=== PATIENT | female | born 1995 | race American Indian/Alaskan Native ===

== ENCOUNTER 2018-02-27 03:03 | Outpatient (CLI) | payer MEDICAID ==
[2018-02-27] MEDS: BRETHINE SUB-Q SCH ×3 (03:45→05:00)
[2018-02-27] MEDS ORDERED: LACTATED RINGERS 500 ML IV ONE (03:48)
[2018-02-27 05:35] LABS: Bacteria,Urine 2+ /HPF (Negative); Bilirubin,Urine NEG (Negative); Blood,Urine NEG (Negative); Color,Urine Straw (Yellow); Protein,Urine <15 mg/dL mg/dL (Negative); Urobilinogen,Urine < 2.0 mg/dL (<2.0)
[2018-02-27 05:58] VITALS: BP 104/66
== END 2018-02-27 07:20 | disposition home or self-care (01) ==
LOC: TRG 03:03
PROVIDERS: ATTEND Obstetrics & Gynecology
DX: O47.02 False labor before 37 completed weeks of gestation, second trimester (principal); O99.612 Diseases of the digestive system complicating pregnancy, second trimester; K21.9 Gastro-esophageal reflux disease without esophagitis; Z3A.27 27 weeks gestation of pregnancy
CPT/HCPCS: 59025; 81001; 96360; 96372; J3105; J7120

== ENCOUNTER 2021-01-20 19:03 | Observation (INO) | payer MEDICAID, OTHER ==
[2021-01-20] MEDS ORDERED: LACTATED RINGERS 1,000 ML IV ONE (21:07)
--- NOTE | 2021-01-20 22:04 | History and Physical Report ---
History of Present Illness Date of examination: 01/20/21 Date of admission: 01/20/2021 Chief complaint: contractions since 530pm tonight History of present illness: EDC Confirmation: 02/02/2021 Past History : 5 Term Births: 1 Premature Births: 1 Living Children: 1 Para: 2 Mult. Births: 0 Prev : 2 Aborta: 2 Elect. Ab: 1 Spont. Ab: 1 Ectopics: 0 # 1 Delivery date: 11/2014 Delivery type: EAB Comments: D & C # 2 Delivery date: 06/2015 Weeks Gestation: 6 Delivery type: SAB # 3 Delivery date: 2016 Weeks Gestation: 28 labor: yes Delivery [facility] Inf[facility] Sex: Female weight: 3lbs Comments: Tetrasomy 9P; lived x 1 month until extubated # 4 Delivery date: 05/23/2018 Weeks Gestation: 39 labor: no Delivery type: Anesthesia type: Spinal Delivery location: [facility] weight: 8 Risk Factors: Smoked Tobacco Use: Never smoker Smokeless Tobacco Use: Never Passive smoke exposure: no Drug use: no HIV high-risk behavior: no Exercise: no Seatbelt use: 100 % Past Medical History: Reviewed history from 06/17/2015 and no changes required: GERD Constipation Anxiety Past Surgical History: Reviewed history from 05/23/2018 and no changes required: tonsillectomy 2015 [place] teeth 2013 EAB 11/2014 with D & C c/s 2017 (05/23/2018) Past Medical History Abnormal PAP: No Uterine Anomaly: negative Social Hx: 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 Infection History HIV Risk Eval: no Hepatitis B Risk Eval: low risk Personal hx. of genital herpes: yes Infection History Comments: HSv titer +, no hx outbreaks Genetic History Congenital Heart Defect: Mom: no Dad: no Taylor Disease: Mom: no Dad: no Thalassemia Mom: no Dad: no Neural Tube Defect Mom: no Dad: no Down's Syndrome Mom: no Dad: no Doc-Sachs Mom: no Dad: no Sickle Cell Disease/Trait Mom: no Dad: no Hemophilia Mom: no Dad: no Muscular Dystrophy Mom: no Dad: no Cystic Fibrosis Mom: no Dad: no [place] Chorea Mom: no Dad: no Mental Retardation Mom: no Dad: no Fragile X Mom: no Dad: no Other Genetic/Chromosomal Disorder Mom: no Dad: no Child w/other defect Mom: yes Dad: no Comments: 1st child born with genetic d Enviromental Exposures Xray Exposure: no Medication, drug, or alcohol use since LMP: no Chemical/Other Exposure: no Exposure to Cat Liter: no Hx of Parvovirus (Fifth Disease): no Occupational Exposure to Children: none Active Medications (reviewed today): PLUS 27-1 MG ORAL TABLET ( VIT-FE FUMARATE-FA) 1 po MICROGESTIN FE 1.5/30 1.5-30 MG-MCG ORAL TABLET (NORETHIN NU-ETH ESTRAD-FE) 1 PO QD Current Allergies (reviewed today): No known allergies Past History Past Medical History: other (see HPI) Past Surgical History: other (see HPI) 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 (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) Family/Genetic History: other (see HPI) Social history: other (see HPI) - Obstetrical History Expected Date of Delivery: 02/02/21 Actual Gestation: 38 Week(s) 1 Day(s) : 5 Para: 2 Hx # Term Pregnancies: 1 Number of Pregnancies: 1 Spontaneous Abortions: 1 Induced : 1 Number of Living Children: 1 Medications and Allergies Allergies Allergy/AdvReac Type Severity Reaction Status Date / Time No Known Allergies Allergy Verified 01/04/15 01:45 Home Medications Medication Instructions Recorded Confirmed Last Taken Type Promethazine [Phenergan TAB] 25 mg PO Q6HR PRN #12 tab 01/04/15 02/27/18 Unknown Rx raNITIdine HCl [Zantac] 150 mg PO Q12H #60 tablet 01/04/15 02/27/18 Unknown Rx Ferrous Sulfate [Feosol 325 MG tab] 325 mg PO BID #60 tablet 02/21/17 02/27/18 Unknown Rx Vit Calc,Iron,Folic 1 each PO DAILY #30 tablet 02/21/17 02/27/18 Unknown Rx [ Vitamins] Ferrous Sulfate [Feosol 325 MG tab] 325 mg PO BID #60 tablet 05/23/18 Unknown Rx Ibuprofen [Motrin 800 MG tab] 800 mg PO Q6H PRN #30 tablet 05/23/18 Unknown Rx oxyCODONE /ACETAMINOPHEN [Percocet 1 - 2 tab PO Q4H PRN #30 tablet 05/23/18 Unknown Rx 5/325 mg] Active Meds: Active Medications Lactated Ringer's (Lactated Ringers) 1,000 mls @ 999 mls/hr IV BOLUS ONE Stop: 01/20/21 22:07 Last Admin: 01/20/21 20:18 Dose: 999 mls/hr Documented by: Review of Systems All systems: negative Genitourinary: contractions - Vital Signs Vital signs: Vital Signs Pulse BP Pulse Ox 92 H 99/70 100 01/20/21 19:36 01/20/21 19:36 01/20/21 19:36 Temp Pulse Resp BP Pulse Ox 98.4 F 96 H 18 99/70 98 01/20/21 19:37 01/20/21 20:56 01/20/21 19:37 01/20/21 19:37 01/20/21 20:56 - Physical Exam Breasts: Positive: deferred Cardiovascular: Regular rate Lungs: Positive: Normal air movement Abdomen: Positive: normal appearance, soft Genitourinary (Female): Positive: normal external genitalia, normal perenium Vulva: both: normal Vagina: Positive: normal moisture Uterus: Positive: normal size, normal contour Anus/Rectum: Positive: normal perianal skin Extremities: Positive: normal - Obstetrical FHR: auscultation normal, category 1 Uterine Contraction Monitor Mode: External Cervical Dilatation: 0 Cervical Effacement Percentage: 0 station: -3 Uterine Contraction Frequency (min): 2-7 Uterine Contraction Pattern: Regular Uterine Tone Measurement Phase: Resting Results All other labs normal. Tests: (1) Ct, Ng, Trich vag by ROBBIE ([id number]) Order Note: Clinical Information: SRC:UR SRC:VR Chlamydia by ROBBIE Negative Negative *1 Gonococcus by ROBBIE Negative Negative *2 Trich vag by ROBBIE Negative Negative *3 Tests: (2) Strep Gp B ROBBIE ([id number]) ! Strep Gp B ROBBIE Negative Negative *4 Lab Monitoring, Entry, and Tracking Initial Lab: TEST VALUE DATE REVIEWED Blood Type: O+ 06/14/2020 D (Rh) Type: + 06/14/2020 Antibody screen: negative 06/14/2020 Hgb: 11.6 06/14/2020 Hct: 32.8 06/14/2020 Rubella: immune 06/14/2020 VDRL: negative 06/14/2020 Urine Culture: negative 06/14/2020 HBsAg: negative 06/14/2020 HIV: negative 06/14/2020 Optional Lab: TEST VALUE DATE REVIEWED Hgb electrophoresis: normal 06/14/2020 Chlamydia: negative 06/14/2020 GC culture: negative 06/14/2020 Chemistry Labs Test Date: Value Units H/L Reference Glucose-random: 111 mg/dL H (70-110) Comments: A1c 5.5% Optional Labs Varicella Ab: negative (06/14/2020) Other Labs: pt reports + HSV 2, titer +, no hx outbreak Assessment and Plan Pt presents with c/o regular painful contractions since 5:30pm tonight and H/O x2. Rpt SVE unchanged and still closed per manager scheduling, however regular contractions still noted via toco, despite IV fluid administration. Dr. Saab consulted and orders received for observation, labs, and NPO overnight. Pt reports eating and drinking last @6pm. POC d/w pt and SO. Orders placed in EMR - Patient Problems (1) Maternal care due to uterine scar from other previous surgery Current Visit: No Status: Acute Plan to address problem: Monitor for changes in status
[2021-01-20] MEDS ORDERED: ACETAMINOPHEN 325 MG TAB PO PRN (22:14)
[2021-01-20] MEDS ORDERED: LACTATED RINGERS 1,000 ML IV SCH (22:15)
[2021-01-21 01:38] LABS: Basophils % (Auto) 0.6 % (0.0-1.8); Eosinophils % (Auto) 0.8 % (0.0-4.3); Hematocrit 28.8 % (30.3-42.9); Lymphocytes # (Auto) 1.6 K/mm3 (1.2-5.4); Lymphocytes % (Auto) 30.5 % (13.4-35.0); Mean Corpuscular HGB Conc 35 % (30-34); Mean Corpuscular Volume 96 fl (79-97); Monocytes # (Auto) 0.3 K/mm3 (0.0-0.8); Monocytes % (Auto) 5.9 % (0.0-7.3); Platelet Count 241 K/mm3 (140-440); Red Cell Distribution Width 14.4 % (13.2-15.2)
--- NOTE | 2021-01-21 01:52 | Event Note ---
Date: 01/21/21 CNM to bedside for assessment; pt sleeping and reports she's without complaints at this time. Cat 1 FHT's with irregular contractions noted via toco. SVE deferred at this time. Lights dimmed for pt comfort and rest encouraged.
[2021-01-21 05:32] VITALS: BP 95/53
--- NOTE | 2021-01-21 07:00 | Discharge Summary ---
Providers - Providers Date of Admission: 01/20/21 22:15 Date of discharge: 01/21/21 (pt denies any further ctx or pain; desires d/c) Attending physician: NELSON FORBES Primary care physician: NELSON FORBES Hospitalization Reason for admission: ctx without labor Condition: Good Disposition: DC-01 TO HOME OR SELFCARE Final Discharge Diagnosis (Prints w/discharge instructions): contractions w/o labor resolved Time spent for discharge: 20min - Discharge Diagnoses (1) Irregular uterine contractions Status: Acute Comment: Pt has her Preop @ 0900 in the [facility] office this AM Core Measure Documentation - Palliative Care Palliative Care/ Comfort Measures: Not Applicable - Core Measures Any of the following diagnoses?: none - VTE Discharge Requirements Deep Vein Thrombosis/Pulmonary Embolism Present on Admission: No Has pt received <5 days of overlap therapy or INR<2.0: No Anticoagulant overlap therapy prescribed at discharge: No Contraindication No Overlap Therapy order at DC: Not Indicated - Acute [place] Discharge Requirements Aspirin at discharge: No Reason for no aspirin on DC: Medical contraindication NU/ARB for LVSD if EF <40%: Not Applicable Reason for no NU/ARB: Medical contraindication Beta esther at discharge: No Reason for no beta esther on DC: Medical contraindication Statin for LDL = or >100 mg/dl on DC: Not Applicable Reason for no statin on DC: Medical contraindication - Heart Failure Discharge Requirements NU/ARB for LVSD if EF <40%: Not Applicable Reason for no NU/ARB: Medical contraindication Beta esther at discharge: No Reason for no beta esther on DC: Medical contraindication - Stroke Discharge Requirements Statin for LDL = or >70 mg/dl on DC: Not Applicable Reason for no statin on DC: Not Indicated Anticoag for atrial fib/atrial flutter: Not Applicable Reason for no anticoag for AF/F on DC: Not Indicated Antithrombotic for ischemic stroke: No Reason for no antithrombotic on DC: Not Indicated Exam - Constitutional Vitals: Temp Pulse Resp BP Pulse Ox 98.4 F 91 H 18 95/53 91 01/21/21 05:00 01/21/21 06:30 01/21/21 05:00 01/21/21 05:31 01/21/21 06:30 General appearance: Present: no acute distress, well-nourished - EENT Eyes: Present: PERRL ENT: hearing intact, clear oral mucosa - Neck Neck: Present: supple, normal ROM - Respiratory Respiratory effort: normal Respiratory: bilateral: CTA - Cardiovascular Heart Sounds: Present: S1 & S2. Absent: rub, click - Extremities Extremities: pulses symmetrical, No edema Peripheral Pulses: within normal limits - Abdominal General gastrointestinal: Present: soft, non-tender, non-distended, normal bowel sounds Female genitourinary: Present: normal - Rectal Rectal Exam: deferred - Integumentary Integumentary: Present: clear, warm, dry - Musculoskeletal Musculoskeletal: gait normal, strength equal bilaterally - Psychiatric Psychiatric: appropriate mood/affect, intact judgment & insight - Neurologic Neurologic: CNII-XII intact, moves all extremities Plan Activity: advance as tolerated Weight Bearing Status: Weight Bear as Tolerated Diet: regular Special Instructions: other (increase hydration) Follow up with: NELSON FORBES MD [Primary Care Provider] - 01/21/21 9:00 am (Keep appt with Dr Dawkins this morning @ 0900 Call with any concerns Increase hydration) Forms: C Discharge Summary
== END 2021-01-21 06:55 | disposition home or self-care (01) ==
LOC: TRG 19:03 → APU 19:12 → TRG 22:15 → APU 22:15 → LD 22:55
PROVIDERS: ADMIT Obstetrics & Gynecology; ATTEND Obstetrics & Gynecology
DX: O62.9 Abnormality of forces of labor, unspecified (principal); Z3A.38 38 weeks gestation of pregnancy; Z98.891 History of uterine scar from previous surgery
CPT/HCPCS: 36415; 59025; 85025; 86592; 86850; 86900; 86901; G0378; J7120; 96360

== ENCOUNTER 2021-01-27 05:24 | Inpatient (IN) | payer MEDICAID, OTHER ==
[2021-01-27] MEDS ORDERED: LACTATED RINGERS 1,000 ML ONE (05:48)
[2021-01-27] MEDS ORDERED: METOCLOPRAMIDE 10 MG/2 ML INJ IV ONE (06:05)
[2021-01-27] MEDS ORDERED: FAMOTIDINE 20 MG/2 ML INJ IV ONE (06:05)
[2021-01-27] MEDS ORDERED: BICITRA ORAL LIQD 30ML PO ONE (06:05)
--- NOTE | 2021-01-27 06:08 | History and Physical Report ---
History of Present Illness Date of examination: 01/27/21 Date of admission: 01/27/21 05:24 History of present illness: Patient presents for scheduled repeat section Menstrual History Regularity: regular Menses every: 28 days Duration: 6 LMP: 04/28/2020 LMP reliability: definite LMP character: normal test type: urine test Date: 11/18/2020 BC at conception: none Planned ? yes EDC Calculations LMP: 02/02/2021 EDC Confirmation: 02/02/2021 Past History : 5 Term Births: 1 Premature Births: 1 Living Children: 1 Para: 2 Mult. Births: 0 Prev : 2 Aborta: 2 Elect. Ab: 1 Spont. Ab: 1 Ectopics: 0 # 1 Delivery date: 11/2014 Delivery type: EAB Comments: D & C # 2 Delivery date: 06/2015 Weeks Gestation: 6 Delivery type: SAB # 3 Delivery date: 2016 Weeks Gestation: 28 labor: yes Delivery type: Delivery location: [facility] Sex: Female weight: 3lbs Comments: Tetrasomy 9P; lived x 1 month until extubated # 4 Delivery date: 05/23/2018 Weeks Gestation: 39 labor: no Delivery type: Anesthesia type: Spinal Delivery location: [facility] weight: 8 Risk Factors: Smoked Tobacco Use: Never smoker Smokeless Tobacco Use: Never Passive smoke exposure: no Drug use: no HIV high-risk behavior: no Exercise: no Seatbelt use: 100 % Past Medical History: GERD Constipation Anxiety Past Surgical History: tonsillectomy 2015 [place] teeth 2014 EAB 11/2014 with D & C c/s 2017 (05/23/2018) Past Medical History Abnormal PAP: No Uterine Anomaly: negative Social Hx: Patient is single 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 Infection History HIV Risk Eval: no Hepatitis B Risk Eval: low risk Personal hx. of genital herpes: yes Infection History Comments: HSv titer +, no hx outbreaks Genetic History Congenital Heart Defect: Mom: no Dad: no Taylor Disease: Mom: no Dad: no Thalassemia Mom: no Dad: no Neural Tube Defect Mom: no Dad: no Down's Syndrome Mom: no Dad: no Doc-Sachs Mom: no Dad: no Sickle Cell Disease/Trait Mom: no Dad: no Hemophilia Mom: no Dad: no Muscular Dystrophy Mom: no Dad: no Cystic Fibrosis Mom: no Dad: no [place] Chorea Mom: no Dad: no Mental Retardation Mom: no Dad: no Fragile X Mom: no Dad: no Other Genetic/Chromosomal Disorder Mom: no Dad: no Child w/other defect Mom: yes Dad: no Comments: 1st child born with genetic d Enviromental Exposures Xray Exposure: no Medication, drug, or alcohol use since LMP: no Chemical/Other Exposure: no Exposure to Cat Liter: no Hx of Parvovirus (Fifth Disease): no Occupational Exposure to Children: none Current Allergies (reviewed today): No known allergies Past History Past Medical History: other (See HPI for details) Past Surgical History: section, other (See HPI for details) 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 (See 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 for details) Family/Genetic History: other (See HPI for details) Social history: other (See HPI for details) - Obstetrical History : 5 Para: 2 Hx # Term Pregnancies: 1 Number of Pregnancies: 1 Spontaneous Abortions: 1 Induced : 1 Number of Living Children: 1 Medications and Allergies Allergies Allergy/AdvReac Type Severity Reaction Status Date / Time No Known Allergies Allergy Verified 01/04/15 01:45 Home Medications Medication Instructions Recorded Confirmed Last Taken Type Promethazine [Phenergan TAB] 25 mg PO Q6HR PRN #12 tab 01/04/15 01/27/21 Unknown Rx raNITIdine HCl [Zantac] 150 mg PO Q12H #60 tablet 01/04/15 01/27/21 Unknown Rx Ferrous Sulfate [Feosol 325 MG tab] 325 mg PO BID #60 tablet 02/21/17 01/27/21 Unknown Rx Vit Calc,Iron,Folic 1 each PO DAILY #30 tablet 02/21/17 01/27/21 01/24/21 17:00 Rx [ Vitamins] Ferrous Sulfate [Feosol 325 MG tab] 325 mg PO BID #60 tablet 05/23/18 01/27/21 Unknown Rx Ibuprofen [Motrin 800 MG tab] 800 mg PO Q6H PRN #30 tablet 05/23/18 01/27/21 Unknown Rx oxyCODONE /ACETAMINOPHEN [Percocet 1 - 2 tab PO Q4H PRN #30 tablet 05/23/18 01/27/21 Unknown Rx 5/325 mg] Ferrous Sulfate [Feosol 325 MG tab] 325 mg PO BID #60 tablet 01/27/21 Unknown Rx Ibuprofen [Motrin] 800 mg PO TID PRN #30 tablet 01/27/21 Unknown Rx Lidocain2.5%/Prilocai2.5% [Emla] 5 gm TP ONCE #1 tube 01/27/21 Unknown Rx oxyCODONE /ACETAMINOPHEN [Percocet 1 - 2 tab PO Q6HR PRN #20 tablet 01/27/21 Unknown Rx 5/325 mg] - Physical Exam Breasts: Positive: deferred Cardiovascular: Regular rate Lungs: Positive: Normal air movement Abdomen: Positive: normal appearance, soft Genitourinary (Female): Positive: normal external genitalia Results Result Diagrams: 01/27/21 20:39 All other labs normal. Assessment and Plan - Patient Problems (1) Anxiety Status: Acute (2) Maternal care due to uterine scar from other previous surgery Status: Acute Plan to address problem: Discuss the risks of the surgery including infection, bleeding possibly heavy e nough to require a blood transfusion, possible damage to bowel, bladder or ureter. Her questions were answered. Patient understands and desires to proceed The patient was instructed/informed the following:
[2021-01-27] MEDS ORDERED: LACTATED RINGERS 1,000 ML IV SCH (06:15)
[2021-01-27 06:19] LABS: Basophils % (Auto) 0.5 % (0.0-1.8); Eosinophils % (Auto) 0.8 % (0.0-4.3); Hematocrit 31.4 % (30.3-42.9); Hemoglobin 10.9 gm/dl (10.1-14.3); Lymphocytes # (Auto) 1.8 K/mm3 (1.2-5.4); Lymphocytes % (Auto) 29.9 % (13.4-35.0); Mean Corpuscular HGB Conc 35 % (30-34); Mean Corpuscular Volume 96 fl (79-97); Monocytes # (Auto) 0.5 K/mm3 (0.0-0.8); Monocytes % (Auto) 8.9 % (0.0-7.3); Platelet Count 266 K/mm3 (140-440); Red Blood Count 3.26 M/mm3 (3.65-5.03); Red Cell Distribution Width 14.5 % (13.2-15.2)
[2021-01-27] MEDS ORDERED: ceFAZolin/Water 2 GM/20 ML 2 GM/20 ML SYRINGE IV NR (07:00)
[2021-01-27] MEDS ORDERED: OXYTOCIN DRIP 30 UNITS/500 ML BAG IV SCH ×2 (07:00→12:00)
--- NOTE | 2021-01-27 07:10 | Anesthesia Consultation ---
Anesthesia Consult and Med Hx Date of service: 01/27/21 - Airway Anesthetic Teeth Evaluation: Poor ROM Head & Neck: Adequate Mental/Hyoid Distance: Adequate Mallampati Class: Class II Intubation Access Assessment: Good - Pulmonary Exam CTA: Yes - Cardiac Exam Cardiac Exam: RRR - Pre-Operative Health Status ASA Pre-Surgery Classification: ASA2 Proposed Anesthetic Plan: Spinal - Pulmonary Hx Smoking: Yes (quit 2019) Hx Asthma: No Hx Respiratory Symptoms: No SOB: No COPD: No Hx Pneumonia: No Hx Sleep Apnea: No - Cardiovascular System Hx Hypertension: No Hx Coronary Artery Disease: No Hx Heart Attack/AMI: No Hx Angina: No Hx Percutaneous Transluminal Coronary Angioplasty (PTCA): No Hx Cardia Arrhythmia: No Hx Pacemaker: No Hx Internal Defibrillator: No Hx Valvular Heart Disease: No Hx Heart Murmur: No Hx Peripheral Vascular Disease: No - Central Nervous System Hx Neuromuscular Disorder: No Hx Seizures: No CVA: No Hx Back Pain: No Hx Psychiatric Problems: No - Gastrointestinal Hx Ulcer: No Hx Gastroesophageal Reflux Disease: Yes - Endocrine Hx Renal Disease: No Hx End Stage Renal Disease: No Hx Cirrhosis: No Hx Liver Disease: No Hx Insulin Dependent Diabetes: No Hx Non-Insulin Dependent Diabetes: No Hx Thyroid Disease: No Hx Hypothyroidism: No Hx Hyperthyroidism: No - Hematic Hx Anemia: No Hx Sickle Cell Disease: No - Other Systems Hx Alcohol Use: No (not since ) Hx Substance Use: No Hx Cancer: No Hx Obesity: Yes
--- NOTE | 2021-01-27 07:10 | Anesthesia Day of Surgery ---
Anesthesia Day of Surgery - Day of Surgery Patient Examined: Yes Patient H&P Reviewed: Yes Patient is NPO: Yes Beta Blockers: No Cardiac Clearance: No Pulmonary Clearance: No Eric's Test: Negative
[2021-01-27] MEDS ORDERED: HYDROmorphone 1 MG/1 ML INJ IV PRN ×2 (07:30)
[2021-01-27] MEDS ORDERED: NALOXONE 0.4 MG/1 ML INJ IV PRN ×2 (07:30→12:00)
[2021-01-27] MEDS ORDERED: PHENYLEPHRINE/NS 1,000 MCG/10 ML SYRINGE (OR USE) IV ONE (07:54)
[2021-01-27] MEDS ORDERED: WATER FOR IRRIG STERILE 1,500 ML BOTTLE IR ONE (07:55)
[2021-01-27] MEDS ORDERED: SODIUM CHLORIDE 0.9% IRR 1,500 ML BOTTLE IR ONE (07:55)
[2021-01-27] MEDS ORDERED: ceFAZolin/STERILE WATER 2 GM/20 ML SYRINGE IV ONE (07:56)
[2021-01-27] MEDS ORDERED: ONDANSETRON 4 MG/2 ML INJ ONE ×2 (07:59)
[2021-01-27] MEDS ORDERED: ONDANSETRON 4 MG/2 ML INJ IV PRN ×2 (08:00→12:00)
[2021-01-27] MEDS ORDERED: OXYTOCIN 10 UNIT/1 ML INJ ONE (08:21)
[2021-01-27] MEDS ORDERED: KETOROLAC 30 MG/1 ML INJ ONE (08:31)
[2021-01-27] MEDS ORDERED: BUPIVACAINE/PF (0.25%) 2.5 MG/ML 30 ML VIAL INFILTRATI ONE ×2 (08:41)
[2021-01-27] MEDS ORDERED: dexAMETHasone 20 MG/5 ML VIAL ONE (08:41)
--- NOTE | 2021-01-27 09:04 | Operative Report ---
Operative Report Operative Report: Date of procedure: January 27, 2021 Pre-operative diagnosis: Intrauterine at 39 weeks and 1 day with previous section Post-operative diagnosis: Same Procedure name(s): Repeat low transverse section Surgeon: Tobi Dawkins MD Drum Maker: Shantell Macdonald CST Anesthesia: Spinal EBL: QBL 610 cc Complications: None Findings: Patient with normal uterus tubes and ovaries bilaterally. Male 8 pounds 3 ounces Apgars 8 at 1 minute and 9 at 5 minutes Specimen(s): None Procedure: The patient was brought to the operating room. A spinal was placed without any complications. She was then placed in left lateral tilt. Prepped and draped in the usual sterile manner. After testing for adequate anesthesia level, a Pfannenstiel incision was made through her previous scar. This incision was taken down to the fascia. The fascia was then nicked in the midli ne. This incision was extended out laterally with Barrow scissors. The fascia was then sharply and bluntly from the underlying rectus muscles. The rectus muscles were bluntly and sharply . The peritoneum was then entered with the double reamer operator's fingers. This incision was spread vertically with care not to damage the bladder below. The bladder flap was then formed sharply and bluntly with Metzenbaum scissors. The Ron self-retaining tractor was then placed without any difficulty. A transverse incision was made in lower uterine segment. This incision was extended laterally with the operators fingers. The amniotic sac was then entered bluntly with the double reamer operator's fingers. The infant was delivered from the vertex position. Bulb suction on the mother's abdomen. Cord was double clamped and cut. The was then passed to the nursery personnel who were in attendance. The above scores were given by the nursery personnel. The placenta was then bluntly removed. The uterus was then externalized and wiped clean the remaining products. The uterine incision was closed in layers. The first incision was closed in a locking manner using 0 Vicryl. This was followed by imbricating stitch also with 0 Vicryl. This closure was hemostatic. The bladder flap was copiously irrigated and found to be hemostatic. The pelvis was copiously irrigated and found to be hemostatic. The uterus was then placed back to the patient's abdomen. The retractors were removed. The rectus muscles were inspected and found to be hemostatic. The fascia was then closed in a running manner using 0 Vicryl. This incision was hemostatic irrigation Bovie. The skin was reapproximated with 4-0 Vicryl subcuticularly. The patient tolerated procedure well. Her urine was clear. The infant was admitted to the well baby nursery. The patient was accompanied to recovery room in good condition. Instrument count correct x3.
--- NOTE | 2021-01-27 09:22 | Progress Note ---
Spinal Anesthesia Block - Spinal Anesthesia Block Start Time: 07:50 Stop Time: 07:55 Performed by:: ADINA ENCINAS Procedure: Patient IDed, H&P reviewed, all questions and concerns were answered, and consent was signed. Timeout was performed at bedside. Patient in sitting position. Sterile prep and drape was performed. [3] ml of 1% lidocaine skin wheal at L[3]- L [4]. Needle introducer advanced. 25 gauge spinal needle advanced. Clear, free flowing CSF. negative blood, negative paresthesia. Spinal dose given. All needles removed. Patient tolerated procedure.
--- NOTE | 2021-01-27 09:24 | Progress Note ---
Regional Anesthesia Block - Regional Anesthesia Block Start Time: :18 Stop Time: :21 Performed By:: ADINA ENCINAS Procedure: Patient consented for TAP block for post surgical pain management. Patient identified, monitors placed, and time out performed. TAP identified bilaterally via ultrasound. Skin prepped bilaterally with [chlorhexidine] and [25g stimuplex] needle advanced to the TAP. [Marcaine 0.22% 35ml] injected under ultrasound guidance on the [left] side. [Marcaine 0.25% 35ml] injected under ultrasound guidance on the [right] side. Negative aspiration every 5mL, No change in heart rate or rhythm. Patient tolerated the procedure well. No apparent complications seen.
[2021-01-27] MEDS ORDERED: HYDROCORTISONE 25 MG RECTAL SUPP PR PRN (12:00)
[2021-01-27] MEDS ORDERED: WITCH HAZEL/ GLYCERIN PAD TP PRN (12:00)
[2021-01-27] MEDS ORDERED: LANOLIN/ZINC/DIMETHICONE (LANSINOH) 7 GM TP PRN (12:00)
[2021-01-27] MEDS ORDERED: FERROUS SULFATE 325 MG TAB PO SCH (12:00)
[2021-01-27] MEDS: KETOROLAC 30 MG/1 ML INJ IV SCH ×2 (13:35→20:49)
[2021-01-27] MEDS: ceFAZolin/NS 1 GM/50 ML 1 GM/50 ML BAG IV SCH ×2 (16:08→23:01)
[2021-01-27] MEDS: D5W/LACTATED RINGERS 1,000 ML IV SCH (20:56)
[2021-01-27 21:21] LABS: Hematocrit 31.1 % (30.3-42.9); Hemoglobin 10.6 gm/dl (10.1-14.3)
[2021-01-27] MEDS ORDERED: MAGNESIUM HYDROXIDE (MOM) ORAL LIQD UDC PO PRN (22:00)
[2021-01-27] MEDS: SIMETHICONE 80 MG CHEW TAB PO PRN (22:41)
[2021-01-27] MEDS: HYDROcodone/ACETAMINOPHEN 5-325 MG TAB PO PRN (23:55)
[2021-01-28] MEDS: KETOROLAC 30 MG/1 ML INJ IV SCH (02:53)
--- NOTE | 2021-01-28 05:33 | Progress Note ---
Assessment and Plan - Patient Problems (1) delivery delivered Onset Date: ~01/27/21 Current Visit: No Status: Acute Plan to address problem: Pt in good spirits. Encouraged with standing and ambulation Will order abdominal binder. VSS FF below umb Lochia small Incision D&I H&H 04/27 No s/sx of anemia. Doing well s/p repeat c/s P: continue postop pathway Advance diet and activity as tolerated Subjective - Subjective Date of service: 01/28/21 (pt OOB to sink; NB had a blow-out) Principal diagnosis: Day #1 s/p repeat sectio Patient reports: appetite normal, voiding normally, pain well controlled, ambulating normally : doing well Objective - Vital Signs Latest vital signs: Vital Signs Temp Pulse Resp BP BP Pulse Ox Pulse Ox 01/28/21 05:25 97.8 F 67 20 104/73 97 01/28/21 03:15 99 01/28/21 01:40 98 01/28/21 01:20 98.0 F 65 20 95/54 98 01/27/21 23:00 98 01/27/21 21:20 97 01/27/21 20:50 98.4 F 77 18 101/64 99 01/27/21 19:35 98 01/27/21 18:26 98 01/27/21 16:01 98 01/27/21 15:43 97.7 F 79 20 100/62 100 01/27/21 14:33 98 01/27/21 12:00 98 01/27/21 10:45 98 01/27/21 10:15 97.9 F 69 18 112/68 100 01/27/21 10:00 78 16 108/65 100 01/27/21 09:45 81 18 110/67 100 01/27/21 09:30 68 16 112/79 100 01/27/21 09:25 75 17 113/74 100 01/27/21 09:20 66 16 112/7 100 01/27/21 09:15 56 L 15 120/83 100 01/27/21 09:12 97.8 F 59 L 12 106/76 100 01/27/21 07:10 86 99 01/27/21 07:05 105 H 99 01/27/21 07:00 86 99 01/27/21 06:55 88 99 01/27/21 06:50 85 99 01/27/21 06:45 82 99 01/27/21 06:40 92 H 98 01/27/21 06:35 89 99 01/27/21 06:30 87 99 01/27/21 06:25 92 H 99 01/27/21 06:20 76 98 01/27/21 06:15 98.2 F 85 16 110/65 110/65 99 Intake and Output 01/27/21 01/27/21 01/28/21 14:59 22:59 06:59 Intake Total 1200 410 Output Total 400 250 900 Balance 800 160 -900 Intake: IV 1200 50 ANCEF/NS 1 GM/50 ML 1 gm 50 In 50 ml @ 100 mls/hr IV Q8H [facility] Rx#:[id number] Oral 360 Output: Urine 400 250 900 Indwelling Catheter 250 900 Uretheral (Joseph) 100 Other: Total, Intake Amount 360 Total, Output Amount 250 900 Estimated Blood Loss 610 - Exam Breasts: Present: normal Cardiovascular: Present: Regular rate Lungs: Present: Normal air movement Abdomen: Present: normal appearance, soft Uterus: Present: normal, fundal height below umbilicus Extremities: Present: normal Incision: Present: normal, dry, intact - Labs Labs: Abnormal lab results 01/27/21 Range/Units 06:00 RBC 3.26 L (3.65-5.03) M/mm3 MCH 33 H (28-32) pg MCHC 35 H (30-34) % Tyler % (Auto) 8.9 H (0.0-7.3) %
[2021-01-28] MEDS: D5W/LACTATED RINGERS 1,000 ML IV SCH (06:05)
[2021-01-28] MEDS: HYDROcodone/ACETAMINOPHEN 5-325 MG TAB PO PRN ×2 (07:15→16:02)
--- NOTE | 2021-01-28 13:33 | Post Anesthesia Evaluation ---
- Post Anesthesia Evaluation Patient Participated: Yes Airway Patent: Yes Stable Respiratory Function: Yes Nausea/Vomiting: No Temp > 96.8F: Yes Pain Manageable: Yes Adequeate Hydration: Yes Anesthesia Complications: No Block Receding Appropriately: Yes Patient on Ventilator: No
[2021-01-28] MEDS: IBUPROFEN 600 MG TAB PO PRN (21:58)
[2021-01-28] MEDS: SIMETHICONE 80 MG CHEW TAB PO PRN (22:00)
[2021-01-29] MEDS: IBUPROFEN 600 MG TAB PO PRN ×2 (05:53→11:38)
--- NOTE | 2021-01-29 08:17 | Discharge Summary ---
Providers - Providers Date of Admission: 01/27/21 05:24 Date of discharge: 01/29/21 (desires d/c home today) Attending physician: BRODIE LAMA 01/27/21 11:16 Consult to Sales Utility Representative [CONS] Routine Reason For Exam: Primary care physician: BRODIE LAMA Hospitalization Reason for admission: scheduled repeat c/s Condition: Good Pertinent studies: postop H&H 10.6/31.1 Procedures: repeat c/s Hospital course: uncomplicated repeat c/s Disposition: DC- TO HOME OR SELFCARE Final Discharge Diagnosis (Prints w/discharge instructions): c/c delivery Time spent for discharge: 20 - Discharge Diagnoses (1) delivery delivered Status: Acute Core Measure Documentation - Palliative Care Palliative Care/ Comfort Measures: Not Applicable - Core Measures Any of the following diagnoses?: none Exam - Constitutional Vitals: Temp Pulse Resp BP Pulse Ox 98.6 F 78 16 119/78 100 01/29/21 00:00 01/29/21 00:00 01/29/21 00:00 01/29/21 00:00 01/29/21 00:56 General appearance: Present: no acute distress, well-nourished - EENT Eyes: Present: PERRL ENT: hearing intact, clear oral mucosa - Neck Neck: Present: supple, normal ROM - Respiratory Respiratory effort: normal Respiratory: bilateral: CTA - Cardiovascular Heart Sounds: Absent: rub, click - Extremities Extremities: No edema - Abdominal General gastrointestinal: Present: soft, non-tender, non-distended, normal bowel sounds Female genitourinary: Present: normal - Integumentary Integumentary: Present: clear, warm, dry - Musculoskeletal Musculoskeletal: gait normal, strength equal bilaterally - Psychiatric Psychiatric: appropriate mood/affect, intact judgment & insight - Neurologic Neurologic: CNII-XII intact, moves all extremities - Additional findings Additional findings: lochia scant, fundus firm, breast and bottle feeding. Plan Activity: advance as tolerated Diet: regular Wound: open to air, keep clean and dry Follow up with: BRODIE LAMA MD [Primary Care Provider] - 7 Days (Congratulations! Please call [phone] to schedule your son's circumcision and your incision check in 1 week. Bring EMLA cream to your son's visit and await instructions. Call for any questions or concerns.) Prescriptions: Lidocain2.5%/Prilocai2.5% [Emla] 5 gm TP ONCE #1 tube Ferrous Sulfate [Feosol 325 MG tab] 325 mg PO BID #60 tablet Ibuprofen [Motrin] 800 mg PO TID PRN #30 tablet PRN Reason: Pain oxyCODONE /ACETAMINOPHEN [Percocet 5/325 mg] 1 - 2 tab PO Q6HR PRN #20 tablet PRN Reason: Pain
[2021-01-29 11:59] VITALS: BP 104/64
[2021-01-29] MEDS ORDERED: TETANUS,DIPH,PERTUSS(ACELL) VACCINE 0.5 ML SYRINGE IM ONE (12:00)
== END 2021-01-29 12:00 | disposition home or self-care (01) | DRG 766 ==
LOC: APU 05:24 → OB 11:12
PROVIDERS: ADMIT Obstetrics & Gynecology; ATTEND Obstetrics & Gynecology
PROC: 10D00Z1 Extraction of Products of Conception, Low, Open Approach (ICD-10-PCS; principal; 2021-01-27)
PROC: 3E0234Z Introduction of Serum, Toxoid and Vaccine into Muscle, Percutaneous Approach (ICD-10-PCS; 2021-01-29)
DX: O34.211 Maternal care for low transverse scar from previous cesarean delivery (principal); O99.62 Diseases of the digestive system complicating childbirth; K21.9 Gastro-esophageal reflux disease without esophagitis; Z20.822 Contact with and (suspected) exposure to COVID-19; O99.344 Other mental disorders complicating childbirth; F41.9 Anxiety disorder, unspecified; Z3A.39 39 weeks gestation of pregnancy; Z87.891 Personal history of nicotine dependence; Z79.899 Other long term (current) drug therapy; Z37.0 Single live birth
CPT/HCPCS: 36415; 85014; 85018; 85025; 86762; 86850; 86900; 86901; 99211; G0378; C1765; G0463; J0690; J1100; J1885; J2370; J2405; J2590; J2765; J3490; J7120; J7121; U0003